=== PATIENT | female | born 1930 | race Caucasian/White ===

== ENCOUNTER 2016-12-05 17:25 | Emergency (ER) | payer MEDICARE ==
[~2016-12-05] VITALS: Ht 167.6 cm; Wt 66.0 kg
[~2016-12-05 17:25] MED LIST: AMIT10TA6 PO; ASCO100089 PO; ASPI-628 PO; ATEN25TA PO; CALC-721 PO; DICL75TA6 PO; FERR-83 PO; FLAX100010 PO; LOSA1TAB69 PO; LOVA20TA PO; MULT-1073 PO; NITR0.4T SL; OMEG1CAP5 PO; OMEP20CA11 PO; URSO250T11 PO; VITA400C23 PO
[2016-12-05 17:40] VITALS: BP 167/74; PULSE 93; O2SAT 99
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
[2016-12-05] MEDS ORDERED: 0.9% Sodium Chloride 500 ML IV ONE (17:51)
[2016-12-05] MEDS ORDERED: Ondansetron 2 mg/mL 2 mL Inj IVPUSH PRN (17:55)
[2016-12-05] MEDS ORDERED: Bacitracin Ointment Packet TOPICAL ONE (18:40)
[2016-12-05] MEDS ORDERED: _HYDROcodone/APAP 5-325 mg Tablet PO PRN (18:45)
[2016-12-05] MEDS ORDERED: BACI28.4 TP (18:49)
[2016-12-05 20:12] VITALS: BP 105/56; PULSE 61; O2SAT 100
== END 2016-12-05 20:18 | disposition home or self-care (01) ==
LOC: SED 17:25
DX: T21.11XA Burn of first degree of chest wall, initial encounter (principal); T21.13XA Burn of first degree of upper back, initial encounter; T22.151A Burn of first degree of right shoulder, initial encounter; T31.10 Burns involving 10-19% of body surface with 0% to 9% third degree burns; X08.8XXA Exposure to other specified smoke, fire and flames, initial encounter; Y93.89 Activity, other specified; Y92.89 Other specified places as the place of occurrence of the external cause; Y99.8 Other external cause status; I10 Essential (primary) hypertension; K21.9 Gastro-esophageal reflux disease without esophagitis; E78.5 Hyperlipidemia, unspecified; Z87.440 Personal history of urinary (tract) infections; Z79.82 Long term (current) use of aspirin; Z87.891 Personal history of nicotine dependence; Z88.1 Allergy status to other antibiotic agents; Z88.2 Allergy status to sulfonamides; Z88.5 Allergy status to narcotic agent; Z88.8 Allergy status to other drugs, medicaments and biological substances
CPT/HCPCS: 16000; 96374; 96375; 99284; J2270; J2405; J7030